=== PATIENT | female | born 1945 | race Caucasian/White ===

== ENCOUNTER 2016-08-20 08:09 | Day surgery (SDC) | payer OTHER, MEDICARE ==
[~2016-08-20] VITALS: Ht 160 cm; Wt 60.9 kg
[2016-08-20] VITALS (9 sets, daily range): BP systolic 126–154; BP diastolic 60–77; PULSE 58–68; RESP 10–18; O2SAT 95–100
--- NOTE | 2016-08-20 07:12 | PCM.HPANE ---
Patient Data Surgeon Admitting Provider: Attending Provider:Mykel Avila DO Primary Care Physician:Abby Mace PA-C Other Provider:Jessica Robinsingham Anesthesia Reason for Visit Left Lateral Epicondylitis Ht/WT & BMI Height (Feet): 5 Height (Inches): 3 Weight (Kilograms): 60.87 Body Mass Index 23.00 Allergies Coded Allergies: Sulfa (Sulfonamide Antibiotics) (Verified Allergy, Unknown, 07/12/15) Past Anesthesia History Anesthesia History: Denies:: Abnormal Airway, Anesthesia Reactions, Difficult Intubation, Fam Anesthesia Reaction, Fam Malignant Hypertherm, Malignant Hyperthermia Diabetes History Hx Diabetes?: No MRSA MRSA: No Medications Hypertension Medication: Yes Home Meds Incl Beta [place]: No Reported Medications Cholecalciferol (Vitamin D3) (Vitamin D3)2,000 Unit Capsule2,000 Unit PO DAILY 08/18/16 Ascorbate Calcium (Vitamin C)500 Mg Tablet1,000 Mg PO DAILY 08/18/16 [tylenol ] 500mg No Conflict Check2 Tablet Q6H PRN For Pain 08/18/16 Carboxymethylcellulose Sodium (Thera Tears)1 Each Droper.gel1 Each OP 6xdaily 08/18/16 Simethicone (Gas-X)80 Mg Gurtxs19 Mg PO DAILY 08/18/16 Multivitamin (Multi Vitamin Daily)1 Each Tablet1 Each PO DAILY 30 Days Ref 0 08/18/16 Meloxicam 7.5 Mg Tablet7.5 Mg PO BID 30 Days Ref 0 08/18/16 Levothyroxine 75 Mcg Dufiua93 Mcg PO DAILY Ref 0 08/18/16 Hydrochlorothiazide 12.5 Mg Enksxad99.5 Mg PO DAILY 30 Days Ref 0 08/18/16 Glucosamine 500 Mg Ykatrj693 Mg PO DAILY 08/18/16 Coy-3/Dha/Epa/Fish Oil (Fish Oil 1,000 mg Softgel)1 Each Capsule1 Each PO DAILY 08/18/16 Enalapril Maleate 20 Mg Nexesy40 Mg PO DAILY 08/18/16 Calcium Carbonate/Vitamin D3 (Calcium 500 + Vit D 200 Tablet)1 Each Tablet3 Each PO DAILY 08/18/16 [acidophilus] No Conflict CheckUnknown Dose DAILY 08/18/16 Discontinued Reported Medications Multivitamin (Multi Vitamin Daily)1 Each Tablet1 Each PO DAILY 30 Days Ref 0 07/12/15 Levothyroxine 75 Mcg Rdslge11 Mcg PO DAILY Ref 0 07/12/15 Hydrochlorothiazide 12.5 Mg Drofpzs91.5 Mg PO DAILY 30 Days Ref 0 07/12/15 Glucosamine 500 Mg Lqdnyb866 Mg PO 07/12/15 Enalapril Maleate 20 Mg Xcihmd59 Mg PO DAILY 07/12/15 Lactobacillus Acidophilus (Acidophilus)1 Each Capsule1 Each PO 07/12/15 History HEENT History: Denies:: Abnormal Airway Difficult Intubation Hearing Problem Hx of Heart Problems?: Yes Cardiovascular History: Positive for:: Hypertension Hx of Respiratory Problem?: No Respiratory History: Denies:: Asthma COPD Emphysema Oxygen Administration Use of C-PAP Machine Neurological History: Denies:: CVA Multiple Sclerosis Parkinson's Disease Seizures Hx of GI Problems?: No Other GI Pertinent History: emr hx fecal incontinence Hx of Problems?: No Female Hx: Denies:: Currently Problems with Breasts? Skin History: Denies:: History Skin Disorders? Pressure Ulcers Hx Musculoskeletal Problems?: Yes Musculoskeletal History: Positive for:: Musculoskeletal Trauma (left lateral epicondyle current admission problem) Osteoarthritis Denies:: Fibromyalgia Joint Replacement Hx of Psycho/Social Problems?: No Hx Surgeries?: Yes (breast bx, thryoid, dequervains) Hx Any Other Health Problems?: Yes Other History: Positive for:: Thyroid Disease Denies:: Cancer Hx Diabetes: No Hx Alcohol Use: Yes (occasionally)Hx Substance Use: No Smoking Status: Never Smoker Have You Smoked inLast 12 mo: No Stop/Bang S-Snoring: Do You Snore Loudly: No T-Tired: feel tired, fatigued: No O-Obsered: Observed not breath: No P-Blood Pressure: treated: Yes B- Body Mass Index > 35 kg/m2: No A- Age over 50: Yes N- Neck Large Circumference: No G- Gender Male: No MARVIN Total Score: 2 MARVIN Risk Assessment: Low Risk, <3 Yes Risk Assessment Category Category 1A: Patient has history of documented sleep apnea, and HAS NOT received any narcotic, sedative or anesthesia administration during this stay. Category 1B: Patient has history of documented sleep apnea, and HAS received any narcotic , sedative or anesthesia administration during this stay Category 2: Patient has SUSPECTED Obstructive Sleep Apnea, and HAS received any narcotic , sedative or anesthesia administration during this stay. Category 3: Patient has SUSPECTED Obstructive Sleep Apnea and HAS NOT received narcotic, sedative or anesthesia administration during this stay. Category 4: Outpatient in Procedural Areas with known sleep apnea or who screen positive for High Risk via the STOP/BANG questionnaire. Exam Exam General Appearance: Alert, Oriented X3, Cooperative, No Acute Distress HEENT/AIRWAY: MP 2 Lungs: Clear to Auscultation, Normal Air Movement Heart: Exam Unremarkable, Regular Rate/Rhythm, No Murmurs/Rubs/Gallops Plan Impression Patient chart reviewed, patient interviewed and anesthestic plan with risks, benefits, and alternatives discussed, and informed consent obtained. ASA Physical Status: ASA2 Mod Systemic Disease Anesthetic Plan: GA Bene/Risks/Altern/Consents: Yes HP Complete Prior to Induction: Yes Sil Lawler MD Aug 20, 2016 07:11
[~2016-08-20 08:09] MED LIST: ASCO-294 PO; CALC-72 PO; CARB1DRO13 OP; CHOL200047 PO; ENAL20TA PO; GLUC500T12 PO; HYDR12.5 PO; LEVO75TA4 PO; Lactated Ringer's 1,000 ML IV SCH; MELO-259 PO; MULT-1018 PO; OMEG-38 PO; SIME80TA53 PO; acidophilus; tylenol
[2016-08-20] MEDS ORDERED: Dexamethasone 4 mg/mL Inj ONE (08:10)
[2016-08-20] MEDS ORDERED: fentaNYL-PF 50 mCg/mL 2 mL Inj ONE (08:10)
[2016-08-20] MEDS ORDERED: Propofol 10,000 mCg/mL 20 mL Inj ONE (08:10)
[2016-08-20] MEDS ORDERED: Glycopyrrolate 0.2 MG/ML 1mL Inj ONE (08:10)
[2016-08-20] MEDS ORDERED: Lactated Ringer's 1,000 ML IV ONE (08:39)
[2016-08-20] MEDS ORDERED: HYDROcodone-APAP 7.5-325 mg Tablet PO PRN (10:35)
[2016-08-20] MEDS ORDERED: Lidocaine 1%-Epi 1:100,000 20 mL Inj INFILTRATE ONE (10:37)
[2016-08-20] MEDS ORDERED: Lactated Ringer's 1,000 ML IV SCH (11:06)
[2016-08-20] MEDS ORDERED: Lactated Ringer's 500 ML IV PRN (11:06)
[2016-08-20] MEDS ORDERED: EPHEDrine Sulfate 50 mg/mL Inj IVPUSH PRN (11:10)
[2016-08-20] MEDS ORDERED: Phenylephrine 10,000 mCg/mL Inj IVPUSH PRN (11:10)
[2016-08-20] MEDS ORDERED: Labetalol 5 mg/mL 4 mL Inj IV PRN (11:10)
[2016-08-20] MEDS ORDERED: Ondansetron 2 mg/mL 2 mL Inj IVPUSH PRN (11:10)
[2016-08-20] MEDS ORDERED: Atropine 0.4 mg/mL Inj IVPUSH PRN (11:10)
[2016-08-20] MEDS ORDERED: MetoCLOpramide 5 mg/mL 2 mL Inj IVPUSH PRN (11:10)
[2016-08-20] MEDS ORDERED: Dexamethasone 4 mg/mL Inj IVPUSH PRN (11:10)
[2016-08-20] MEDS ORDERED: HYDROmorphone 1 mg/mL Inj IVPUSH PRN (11:10)
--- NOTE | 2016-08-20 11:46 | PCM.ANEP1 ---
Post Anesthesia Phase 1 PACU Phase 1 Assessment Vital Signs Vital Signs Date Time Temp Pulse Resp B/P Pulse Ox O2 Delivery O2 Flow Rate FiO2 08/20/16 11:40 59 11 134/69 98 Simple Mask 7 08/20/16 11:36 36.4 130/76 08/20/16 08:40 36.1 58 17 154/77 97 Room Air Anesthetic Administered: GA Level of Alertness: Awake, talking Pain: No Nausea or Vomiting: No Oxygen Delivery: Simple Mask Lungs: Clear to Auscultation, Normal Air Movement Sil Lawler MD Aug 20, 2016 11:46
[2016-08-20] MEDS: fentaNYL-PF 50 mCg/mL 2 mL Inj IVPUSH PRN ×2 (12:05→12:11)
--- NOTE | 2016-08-20 12:45 | PCM.ANEP2 ---
Post Anesthesia Evaluation ASA/CMS Post Anesthesia VS in Patient's Normal Range?: Yes Resp Stable; Airway Patent?: Yes CV Function & Hydration Stable: Yes Mental Status Recovered?: Yes Pain control Satisfactory?: Yes N/V Control Satisfactory?: Yes Sil Lawler MD Aug 20, 2016 12:45
--- NOTE | 2016-08-21 13:22 | OP ---
[address] [address] OPERATIVE REPORT PATIENT: ABDIAZIZ GR : 1945 MR#: [id number] ADMIT: 08/20/2016 JOB ID: [id number] DATE OF SURGERY: 08/20/2016 PREOPERATIVE DIAGNOSIS(ES): Left lateral epicondylitis. POSTOPERATIVE DIAGNOSIS(ES): Left lateral epicondylitis. PROCEDURE: Left lateral epicondyle and extensor debridement. SURGEON: Mykel Avila DO METAL DEALER: Abbie Canela PA-C ANESTHESIA: General. HISTORY: The patient is a pleasant 70-year-old female that has a longstanding history of bilateral elbow pain. She had failed conservative treatment with bracing, as well as physical therapy in given time. I discussed with the patient the risks, benefits, alternatives, and indications to proceed with a left lateral epicondyle and common extensor debridement secondary to residual pain despite the conservative treatment. She understood the risks include, but not limited to, neurovascular injury, tendon injury, infection, failure to resolve the patient's preoperative symptoms, stiffness, persistent pain, all of which may require further intervention. The patient had all questions answered. Consent was signed and placed in the chart. PROCEDURE IN DETAIL: The patient was brought to the operative suite and placed on the operating table. Surgical time-out performed. Everyone in the room was in agreement. After appropriate anesthesia was obtained, a left upper arm tourniquet was applied and the left upper extremity was prepped and draped in a sterile fashion. Left upper extremity was then exsanguinated and tourniquet inflated to 250 mmHg. A longitudinal incision was made starting at the level of the lateral epicondyle and extending distally along the interval between the ECRL and the EDC. Dissection was carried down to the overlying fascia. A longitudinal incision was made in the fascia. The interval between the ECRL and EDC was entered revealing the underlying ECRB. The tendon demonstrated significant tendinopathy. A Nirschl scratch test was utilized with a 15 blade scalpel in order to determine the pathologic tissue in order to be excised. Tissue was excised as well as exposure of the lateral epicondyle. Lateral epicondyle was then debrided with a rongeur and smoothed with a rasp. This was followed by multiple perforations of the lateral epicondyle with a 0.062 inch K-wire to stimulate bleeding. Copious irrigation was then performed followed by closure of the fascia and tendon split with #1 Vicryl in a [id number] fashion. Further irrigation was performed followed by closure of the subcutaneous tissues with 4-0 Vicryl and 4-0 Monocryl for the skin. The patient was then placed in a well-padded, well-molded, long-arm posterior splint. ESTIMATED BLOOD LOSS: Less than 1 cc. COMPLICATIONS: None. DISPOSITION: The patient tolerated the procedure well. Anesthesia was reversed. The patient was transferred back to recovery. POSTOPERATIVE PLAN: The patient will follow up in the office in two weeks. I will transition her into a removable wrist brace that she already has at the next visit and have her start working on range of motion with physical therapy. It will be four weeks concentrated mainly on range of motion before progressing to any strengthening. [place]
== END 2016-08-20 23:59 | disposition home or self-care (01) ==
LOC: SAS 08:09
PROVIDERS: ATTEND Orthopaedic Surgery
DX: M77.11 Lateral epicondylitis, right elbow (principal); M65.4 Radial styloid tenosynovitis [de Quervain]; I10 Essential (primary) hypertension; K57.30 Diverticulosis of large intestine without perforation or abscess without bleeding; K58.9 Irritable bowel syndrome, unspecified; E03.9 Hypothyroidism, unspecified; M19.90 Unspecified osteoarthritis, unspecified site
CPT/HCPCS: 24358; J0690; J1100; J1170; J2250; J3010; J7120